=== PATIENT | female | born 2005 | race Asian ===

== ENCOUNTER 2024-10-17 08:47 | Emergency (ER) | payer OTHER ==
[2024-10-17] MEDS ORDERED: droPERidol 5 MG/2 ML VIAL ONE (09:47)
[2024-10-17] MEDS ORDERED: ACETAMINOPHEN 500 MG TAB ONE (09:47)
[2024-10-17] MEDS ORDERED: NA CHLORIDE 0.9% 1,000 ML ONE (09:48)
[2024-10-17] MEDS ORDERED: dexAMETHasone 10 MG/ML VIAL ONE (09:48)
--- NOTE | 2024-10-17 09:54 | RAD REPORT ---
EXAMINATION: Head Brain Wo Cont CLINICAL INDICATION: Female, 19 years old.worsening PASTRANA TECHNIQUE: Axial CT images from the skull base to the vertex without intravenous contrast. Coronal an d sagittal reformatted images were created from the data set. One or more of the following dose reduction techniques were used: Automated exposure control, adjustment of the mA and/or kV according to patient size, and/or iterative reconstruction. Unless otherwise specified, incidental findings do not require dedicated imaging follow-up. [id number]. COMPARISON: No prior exam. FINDINGS: INTRACRANIAL: No acute intracranial hemorrhage. No hydrocephalus. No mass effect or midline shift. No significant white matter disease. VASCULATURE: No visualized abnormalities in the arteries or dural venous sinuses. SCALP/SKULL: No calvarial fracture identified. No acute soft tissue abnormality. SINUSES: The visualized paranasal sinuses are mostly clear. No significant mastoid fluid. IMPRESSION: No acute intracranial abnormality.
[2024-10-17 10:16] LABS: Absolute Eosinophils 0.1 K/uL (0-0.5); Absolute Lymphocytes (CBC) 2.2 K/uL (0.7-4.9); Absolute Monocytes 0.4 K/uL (0.1-1.3); Absolute Neutrophil 2.9 K/uL (1.8-8.0); Basophils % 0.8 % (0-1.3); Eosinophils % 2.4 % (0-4.4); Hematocrit 38.8 % (36.0-45.0); Hemoglobin 13.1 g/dL (12.0-15.0); Lymphocytes % 38.3 % (15.3-44.8); MCH 27.8 pg (27.0-35.0); MCHC 33.7 g/dL (32.0-36.0); MCV 82.5 fL (80-100); MPV 7.2 fL (7.6-11.3); Monocytes % 7.4 % (3.3-12.3); Neutrophils % 51.1 % (41.7-73.7); Nucleated Red Blood Cells % 0.1 % (0-0); Platelets 366 thou/uL (152-406); RBC Red Blood Cell Count 4.71 M/uL (3.86-4.86); Red Cell Distribution Width 16.1 % (12.1-15.2)
[2024-10-17 10:32] LABS: Albumin 3.6 g/dL (3.4-5.0); Albumin/Globulin Ratio 0.9 (1.1-1.8); Anion Gap 7.7 mEq/L (5.0-15.0); Bilirubin Total 0.3 mg/dL (0.2-1.0); Globulin 4.1 g/dL (2.3-3.5); Potassium 3.7 mEq/L (3.5-5.1); Protein, Total 7.7 g/dL (6.4-8.2)
--- NOTE | 2024-10-17 11:00 | EDPHYS ---
Physician Documentation [facility] Name: Alisa Hinojosa Age: 19 yrs Sex: Female : 2005 Arrival Date: 10/17/2024 Time: 08:47 Bed 10 Private MD: ED Physician Bimal Martinez HPI: 10/17 09:27 Chief Complaint: Headache worsening over the past few days. 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 She was taking CellCept for approximately two years while in [facility], which is typically used for immunosuppression but stopped taking it upon arrival in the [place] because she felt well. Two days ago, she began experiencing severe headaches that have progressively worsened. She had previously visited a family doctor in [place], Dr. Remy Bacon, for these headaches but was only given pain medication and a medication to support kidney function, as prolonged medication use had affected her kidneys. The headaches have persisted, prompting her visit to the emergency department today. The patient reports taking medication last night for her headache, although the name of the medication is unknown. She needs a specialist referral, likely a neurologist. ROS otherwise negative. . Historical: - Allergies: 09:20 No Known Allergies; hb - PSHx: 09:20 None; hb - Immunization history:: Adult Immunizations up to date. - Infectious Disease History:: Denies. - Social history:: Smoking status: Patient denies any tobacco usage or history of. ROS: 09:27 All other systems are negative, jr11 Exam: 09:27 Constitutional: This is a well developed, well nourished patient who is awake, alert, jr11 and in no acute distress. Head/Face: Normocephalic, atraumatic. Eyes: Extra-ocular motions intact. Lids and lashes normal. Conjunctiva and sclera are non-icteric and not injected. Cornea within normal limits. Periorbital areas with no swelling, redness, or edema. ENT: Nares patent. No nasal discharge, no septal abnormalities noted. Oropharynx with no redness, swelling, or masses, exudates, or evidence of obstruction, uvula midline. Mucous membranes moist. Chest/axilla: Normal chest wall appearance and motion. Nontender with no deformity. No lesions are appreciated. Cardiovascular: Regular rate and rhythm with a normal S1 and S2. No gallops, murmurs, or rubs. Normal PMI, no JVD. No pulse deficits. Respiratory: Lungs have equal breath sounds bilaterally, clear to auscultation and percussion. No rales, rhonchi or wheezes noted. No increased work of breathing, no retractions or nasal flaring. Abdomen/GI: Soft, non-tender, with normal bowel sounds. No distension or tympany. No guarding or rebound. No evidence of tenderness throughout. Back: No spinal tenderness. No costovertebral tenderness. Full range of motion. Skin: Warm, dry with normal turgor. Normal color with no rashes, no lesions, and no evidence of cellulitis. MS/ Extremity: Pulses equal, no cyanosis. Neurovascular intact. Full, normal range of motion. Neuro: Awake and alert, GCS 15, oriented to person, place, time, and situation. No gross motor or sensory deficits. Vital Signs: 09:17 BP 97 / 56; Pulse 67; Resp 16; Temp 98.3; Pulse Ox 100% on R/A; Weight 61.23 kg; Height hb 5 ft. 0 in. ; Pain 8/10; 09:17 Body Mass Index 26.37 (61.23 kg, 152.4 cm) hb 09:17 Pain Scale: Adult hb MDM: 09:21 Medical Screening Exam initiated jr11 09:27 Differential diagnosis: Medical Decision Making: Given the patient's history and jr11 symptoms, the differential diagnosis includes tension headache, migraine, medication overuse headache, and intracranial pathology such as a tumor or infection. Less likely but life-threatening conditions to consider include subarachnoid hemorrhage, meningitis, or a space-occupying lesion. A referral to a neurologist is warranted for further evaluation. Laboratory tests, including kidney function tests, are needed to monitor the effects of previous medications. Plan: - Provide symptomatic relief for headache with appropriate analgesics. - Conduct laboratory tests to evaluate kidney function and overall health status. - Refer the patient to a neurologist for further evaluation and management. - Educate the patient and family about potential causes and symptoms to monitor. - Follow up with the primary care physician for comprehensive management. Denies worse PASTRANA, thunderclalp, acute on chronic over multiple months. 10:57 ED course: Patient feeling significantly better, CT head interpreted by me shows no jr11 abnormality. Patient will follow-up with neurology as an outpatient. Patient and uncle comfortable with plan of care.. 10/17 09:20 Order name: CBC with Diff; Complete Time: 10:32 10/17 09:20 Order name: CMP; Complete Time: 10:53 10/17 09:20 Order name: Test, Serum 10/17 09:30 Order name: CT Head Brain wo Cont; Complete Time: 09:58 10/17 09:20 Order name: IV Saline Lock; Complete Time: 10:11 10/17 09:20 Order name: Labs collected and sent; Complete Time: 10:11 Administered Medications: 10:02 Drug: NS 0.9% IV 1000 ml IV at 1 bolus Per protocol; to be given as a bolus over 60 hb minutes Route: IV; Rate: 1 bolus; Site: right antecubital; 11:11 Follow up: IV Status: Completed infusion bp 10:02 Drug: Droperidol IVP 0.625 mg IVP once Route: IVP; Site: right antecubital; hb 11:11 Follow up: Response: No adverse reaction bp 10:02 Drug: Dexamethasone IVP 10 mg IVP once; (not to exceed 40 mg) Route: IVP; Site: right hb antecubital; 11:11 Follow up: Response: No adverse reaction bp 10:11 Drug: Acetaminophen PO 1000 mg PO once Route: PO; hb 11:11 Follow up: Response: No adverse reaction bp Disposition Summary: 10/17/24 10:59 Discharge Ordered Notes: Location: Home jr11 Condition: Stable jr11 Diagnosis - Headache jr11 Discharge Instructions: - Discharge Summary Sheet jr11 - General Headache Without Cause jr11 Forms: - Medication Reconciliation Form jr11 - Antibiotic Education jr11 - Prescription Opioid Use jr11 - Patient Portal Instructions jr11 - Leadership Thank You Letter jr11 Prescriptions: - ondansetron 4 mg Oral Tablet,disintegrating - take 1 tablet ORAL route 2 to 3 times per day as needed for nausea and jr11 vomiting; 12 tablet; Refills: 0, Product Selection Permitted Signatures: Dis[facility] Lacy Dewitt RN RN Bimal Martinez MD MD jr Robby Sanchez RN bp Corrections: (The following items were deleted from the chart) 09:31 09:31 Head Brain Wo Cont+CT.RAD.BRZ ordered. EDMS EDMS
--- NOTE | 2024-10-17 11:00 | ER ---
Nurse's Notes [facility] Name: Alisa Hinojosa Age: 19 yrs Sex: Female : 2005 Arrival Date: 10/17/2024 Time: 08:47 Bed 10 Private MD: Diagnosis: Headache Presentation: 10/17 09:08 Chief complaint: [address] [employer] #[id number]. Chronic headaches, feels like pain is hb getting worse. Coronavirus screen: At this time, the client does not indicate any symptoms associated with coronavirus-19. Ebola Screen: No symptoms or risks identified at this time. Initial Sepsis Screen: Does the patient meet any 2 criteria? No. Patient's initial sepsis screen is negative. Does the patient have a suspected source of infection? No. Patient's initial sepsis screen is negative. Risk Assessment: Do you want to hurt yourself or someone else? Patient reports no desire to harm self or others. 09:08 Method Of Arrival: Ambulatory hb 09:17 Onset of symptoms is unknown. hb 09:17 Acuity: [facility] 3 hb Triage Assessment: 11:09 Headache History: The patient has had previous headaches and this one is similar to bp previous episodes. General: Appears in no apparent distress. uncomfortable, Behavior is cooperative, appropriate for age, anxious. Pain: Pain began gradually, Also complains of no other associated symptoms. Pain: Complains of pain in head. EENT: No deficits noted. Neuro: No deficits noted. Cardiovascular: No deficits noted. Respiratory: No deficits noted. GI: No signs and/or symptoms were reported involving the gastrointestinal system. : No signs and/or symptoms were reported regarding the genitourinary system. Derm: No deficits noted. Musculoskeletal: No deficits noted. Historical: - Allergies: 09:20 No Known Allergies; hb - PSHx: 09:20 None; hb - Immunization history:: Adult Immunizations up to date. - Infectious Disease History:: Denies. - Social history:: Smoking status: Patient denies any tobacco usage or history of. Screenin:10 [facility] ED Fall Risk Assessment (Adult) History of falling in the last 3 months, bp including since admission No falls in past 3 months (0 pts) Confusion or Disorientation No (0 pts) Intoxicated or Sedated No (0 pts) Impaired Gait No (0 pts) Mobility Assist Device Used No (0 pt) Altered Elimination No (0 pt) Score/Fall Risk Level 0 - 2 = Low Risk Oriented to surroundings. Abuse screen: Denies threats or abuse. Denies injuries from another. Nutritional screening: No deficits noted. Nutritional screening: No deficits noted. Tuberculosis screening: No symptoms or risk factors identified. Assessment: 09:30 General: Appears in no apparent distress. Behavior is calm, cooperative. Pain: Pain hb currently is 8 out of 10 on a pain scale. Neuro: Level of Consciousness is awake, alert, obeys commands, Oriented to person, place, time, situation, Reports headache. Cardiovascular: Patient's skin is warm and dry. Respiratory: Respiratory effort is even, unlabored, Respiratory pattern is regular, symmetrical. GI: No signs and/or symptoms were reported involving the gastrointestinal system. : No signs and/or symptoms were reported regarding the genitourinary system. EENT: No signs and/or symptoms were reported regarding the EENT system. Derm: Skin is pink, warm \T\ dry. Musculoskeletal: No signs and/or symptoms reported regarding the musculoskeletal system. Vital Signs: 09:17 BP 97 / 56; Pulse 67; Resp 16; Temp 98.3; Pulse Ox 100% on R/A; Weight 61.23 kg; Height hb 5 ft. 0 in. ; Pain 8/10; 09:17 Body Mass Index 26.37 (61.23 kg, 152.4 cm) hb 09:17 Pain Scale: Adult hb ED Course: 08:51 Patient arrived in ED. al6 08:54 Bimal Martinez MD is Attending Physician. jr11 09:09 Lacy Cooper, WENDI is Primary Nurse. hb 09:12 Arm band placed on. hb 09:20 Triage completed. hb 09:39 CT Head Brain wo Cont In Process Unspecified. EDMS 10:02 Initial lab(s) drawn, by me, sent to lab. Inserted saline lock: 20 gauge in right hb antecubital area, using aseptic technique. Blood collected. Flushed with 10 mL NS. 10:11 Test, Serum Sent. hb 10:11 CBC with Diff Sent. hb 10:11 CMP Sent. hb 10:14 Patient has correct armband on for positive identification. Bed in low position. Call hb light in reach. Provided Education on: medication, tests, result times. 11:10 No provider procedures requiring assistance completed. IV discontinued, intact, bp bleeding controlled, No redness/swelling at site. Pressure dressing applied. Administered Medications: 10:02 Drug: NS 0.9% IV 1000 ml IV at 1 bolus Per protocol; to be given as a bolus over 60 hb minutes Route: IV; Rate: 1 bolus; Site: right antecubital; 11:11 Follow up: IV Status: Completed infusion bp 10:02 Drug: Droperidol IVP 0.625 mg IVP once Route: IVP; Site: right antecubital; hb 11:11 Follow up: Response: No adverse reaction bp 10:02 Drug: Dexamethasone IVP 10 mg IVP once; (not to exceed 40 mg) Route: IVP; Site: right hb antecubital; 11:11 Follow up: Response: No adverse reaction bp 10:11 Drug: Acetaminophen PO 1000 mg PO once Route: PO; hb 11:11 Follow up: Response: No adverse reaction bp Outcome: 10:59 Discharge ordered by MD. kessler 11:10 Discharged to home ambulatory, with family, bp 11:10 Condition: stable 11:10 Discharge instructions given to patient, Instructed on discharge instructions, follow up and referral plans. medication usage, Demonstrated understanding of instructions, follow-up care, medications, Prescriptions given X 1, 11:12 Patient left the ED. bp Signatures: Dispatcher [employer] EDMS Lacy Cooper, RN RN Robby Sanchez RN RN Bimal Hunt MD MD [email or web address] [id number]
[2024-10-17 11:35] VITALS: BP 97/56; TEMP 98.3; O2SAT 100
== END 2024-10-17 11:12 | disposition home or self-care (01) ==
LOC: ER 08:47
DX: R51.9 Headache, unspecified (principal)
CPT/HCPCS: 85025; 36415; 84703; 80053; 70450; J1100; J1790; J7030